=== PATIENT | female | born 1950 | race Caucasian/White ===

== ENCOUNTER 2021-06-01 10:22 | Inpatient (IN) | payer OTHER ==
[~2021-06-01] VITALS: Ht 167.6 cm; Wt 104.1 kg
--- NOTE | 2021-06-01 10:49 | NUR ---
TO ED ROOM 29 PER W/C. PT C/O N/V, DIARRHEA, SOB, DRY HEAVES; SX STARTED LAST NOC. INTERMITTENT PAIN ACROSS SHOULDER. DENIES FEVER. COVID VACC (J&J) IN MARCH. NO MED TAKEN FOR SX TODAY. [place] FOR THE [place], ATE AT [facility] LAST NOC.
--- NOTE | 2021-06-01 10:54 | NUR ---
DR LYNNE AT BS. PT ABLE TO SPEAK IN COMPLETE SENTENCES. REPORTS CHRONIC SOB FROM A-FIB, BUT WORSE TODAY.
[2021-06-01] MEDS ORDERED: METOPROLOL (10:58)
[2021-06-01] MEDS ORDERED: PRADAXA (10:58)
[2021-06-01] MEDS ORDERED: SODIUM CHLORIDE 0.9% 1,000ML IVBOLUS ONE (11:00)
[2021-06-01] MEDS ORDERED: ONDANSETRON 2MG/ML, 2ML IVPush ONE (11:00)
[2021-06-01] MEDS ORDERED: METOPROLOL 1 MG/ML, 5ML ONE ×2 (11:20→12:15)
[2021-06-01] MEDS ORDERED: ONDANSETRON 2MG/ML, 2ML ONE (11:20)
[2021-06-01 11:23] LABS: BASOPHILS % (AUTO) 1 % (0-1); EOSINOPHILS % (AUTO) 0 % (1-7); LYMPHOCYTES % (AUTO) 11 % (22-44); MEAN CORPUSCULAR HEMOGLOBIN 33.4 pg (27.0-34.8); MEAN CORPUSCULAR HGB CONC 34.1 g/dL (32.4-35.8); MEAN PLATELET VOLUME 8.6 fL (7.4-10.4); MONOCYTES % (AUTO) 9 % (2-9); NEUTROPHILS % (AUTO) 80 % (42-75); PLATELET COUNT 224 x10^3/uL (130-400); RED BLOOD COUNT 4.02 x10^6/uL (3.82-5.3); RED CELL DISTRIBUTION WIDTH 13.3 % (9.6-15.2)
[2021-06-01] MEDS: METOPROLOL 1 MG/ML, 5ML IVPush PRN ×3 (11:26→13:19)
--- NOTE | 2021-06-01 11:30 | NUR ---
ZOFRAN AND LOPRESSOR GIVEN. IV SITE PATENT. A-FIB CONTINUING; RATE [id number]
[2021-06-01 11:31] LABS: ALANINE AMINOTRANSFERASE 41 U/L (12-78); ALBUMIN 4.2 g/dL (3.4-5.0); ANION GAP 10 mmol/L (5-15); CALCIUM 10.2 mg/dL (8.5-10.1); CHLORIDE 102 mmol/L (98-107); CREATININE 0.71 mg/dL (0.55-1.02)
--- NOTE | 2021-06-01 11:35 | NUR ---
O2 SAT 89-90% RA. O2 APPLIED 2LNC; WILL TITRATE PRN.
[2021-06-01 11:36] LABS: ALKALINE PHOSPHATASE 37 U/L (45-117); TOTAL PROTEIN 8.1 g/dL (6.4-8.2)
[2021-06-01 11:44] LABS: TROPONIN I 0.558 ng/mL (0.000-0.045)
--- NOTE | 2021-06-01 11:53 | NUR ---
PT AWARE OF NEED FOR URINE SPECIMEN. REPORTS NO URGE TO VOID, AT THIS TIME.
[2021-06-01] MEDS ORDERED: FUROSEMIDE 20 MG/2 ML ONE (12:14)
[2021-06-01] MEDS ORDERED: ASPIRIN 81 MG TABLET CHEW PO ONE (12:30)
[2021-06-01] MEDS ORDERED: FUROSEMIDE 20 MG/2 ML IV ONE (12:30)
--- NOTE | 2021-06-01 12:53 | NUR ---
AMBULATORY TO & FROM [facility] W/OUT INCIDENT; GAIT STEADY. VOIDED SPECIMEN PROVIDED.
--- NOTE | 2021-06-01 13:01 | NUR ---
LOPRESSOR 5MG SECOND DOSE GIVEN. HOSPITALIST AT BS.
[2021-06-01] MEDS ORDERED: ASPIRIN 81 MG TABLET CHEW ONE (13:11)
[2021-06-01 13:13] LABS: MICROSCOPIC AUTO
--- NOTE | 2021-06-01 13:14 | NUR ---
HR [id number]. WILL NOTIFY ERP
--- NOTE | 2021-06-01 13:22 | NUR ---
LOPRESSOR THIRD DOSE GIVEN. O2 SAT 88% 2LNC. O2 INCREASED TO 4LNC; WILL TITRATE PRN
[2021-06-01 13:50] LABS: ANION GAP 10 mmol/L (5-15); CALCIUM 10.1 mg/dL (8.5-10.1); CHLORIDE 104 mmol/L (98-107); CHOLESTEROL, TOTAL 161 mg/dL (140-239); CREATININE 0.75 mg/dL (0.55-1.02); TRIGLYCERIDES 115 mg/dL (50-200); VLDL CHOLESTEROL 23 mg/dL (0-25)
[2021-06-01 13:54] LABS: CHOL/HDL RATIO 1.5; FREE T4 (FREE THYROXINE) 0.85 ng/dL (0.76-1.46); HDL CHOL % 66 % (28-40); HDL CHOLESTEROL (DIRECT) 107 mg/dL (40-60); LDL CHOLESTEROL,CALCULATED 31 mg/dL (54-169); LDL/HDL RATIO 0.3 (0.5-3.0)
[2021-06-01 13:55] LABS: TROPONIN I 0.892 ng/mL (0.000-0.045)
[2021-06-01] MEDS ORDERED: METOPROLOL TARTRATE 25 MG TAB ONE (13:58)
[2021-06-01] MEDS: METOPROLOL TARTRATE 25 MG TAB PO SCH ×2 (14:05→20:57)
--- NOTE | 2021-06-01 14:11 | NUR ---
AMBULATORY TO & FROM [facility]; GAIT STEADY. C/O BEING WINDED AFTER WALKING. MONITORING REAPPLIED. O2 6LNC. PT AWARE OF HOLD FOR BED. SIDE RAIL UP X1, CALL LIGHT W/IN REACH. SPOUSE IN ROOM.
[2021-06-01] MEDS ORDERED: METO25TA35 PO (14:21)
[2021-06-01] MEDS ORDERED: DABI150C PO (14:21)
[2021-06-01] MEDS ORDERED: SIMV40TA20 PO (14:21)
[2021-06-01] MEDS ORDERED: CORTISONE PO (14:21)
[2021-06-01] MEDS ORDERED: LOSA50TA14 PO (14:21)
[2021-06-01] MEDS ORDERED: CEFTRIAXONE 1,000 MG in DEXTROSE 5% 50 ML IVPB ONE (14:30)
--- NOTE | 2021-06-01 14:48 | NUR ---
MIRI MOLINA, INFUSING AT 100ML/HR VIA DIAL-A-FLOW. IV SITE PATENT. MONITORING CONTINUING, RATE [id number]. O2 SAT 95% 6LNC. NO ADDITIONAL NEEDS, AT THIS TIME.
--- NOTE | 2021-06-01 14:53 | NUR ---
LATE ENTRY FROM 5: CALLED DR LOWERY. CONFIRMED KNOWLEDGE OF LATEST TROP LEVEL AND REQUESTED ANTI-EMETIC FOR PT. ANTI-EMETIC TO BE ORDERED PER DR LOWERY.
--- NOTE | 2021-06-01 14:59 | NUR ---
REPORT FROM GONZALO YOON
--- NOTE | 2021-06-01 15:00 | NUR ---
pt sleeping, resp even and unlabored. pending room on floor.
--- NOTE | 2021-06-01 15:27 | NUR ---
report to Carolyn YOON
[2021-06-01] MEDS ORDERED: PROMETHAZINE 25 MG/ML, 1ML IM PRN (15:30)
[2021-06-01 16:02] VITALS: BP 128/89
[2021-06-01] MEDS ORDERED: DILTIAZEM 5 MG/ML, 5ML IVPush PRN (18:00)
[2021-06-01] MEDS: FUROSEMIDE 40 MG/4 ML IV SCH (18:46)
[2021-06-01 19:36] VITALS: BP 128/65
[2021-06-01] MEDS ORDERED: HEPARIN 25,000 UNITS/250ML PMX 250 ML IV PRN (22:30)
[2021-06-01] MEDS ORDERED: HEPARIN 5,000 UNITS/ML, 1ML IV ONE (22:30)
[2021-06-02 01:15] VITALS: BP 131/74
[2021-06-02] MEDS: METOPROLOL TARTRATE 25 MG TAB PO SCH ×4 (01:17→19:48)
[2021-06-02 02:25] LABS: TROPONIN I 0.779 ng/mL (0.000-0.045)
[2021-06-02 06:48] VITALS: BP 107/74
[2021-06-02] MEDS: FUROSEMIDE 40 MG/4 ML IV SCH ×2 (07:57→16:54)
[2021-06-02] MEDS: HEPARIN 5,000 UNITS/ML, 1ML IV PRN ×2 (09:12→15:47)
[2021-06-02] MEDS ORDERED: DILTIAZEM 120 MG CAP.ER.12H PO SCH (09:30)
[2021-06-02 09:48] LABS: BASOPHILS % (AUTO) 1 % (0-1); EOSINOPHILS % (AUTO) 0 % (1-7); LYMPHOCYTES % (AUTO) 12 % (22-44); MEAN CORPUSCULAR HEMOGLOBIN 33.8 pg (27.0-34.8); MEAN CORPUSCULAR HGB CONC 34.3 g/dL (32.4-35.8); MEAN PLATELET VOLUME 9.3 fL (7.4-10.4); MONOCYTES % (AUTO) 7 % (2-9); NEUTROPHILS % (AUTO) 80 % (42-75); PLATELET COUNT 220 x10^3/uL (130-400); RED BLOOD COUNT 3.93 x10^6/uL (3.82-5.3); RED CELL DISTRIBUTION WIDTH 13.3 % (9.6-15.2)
[2021-06-02 09:59] LABS: ALBUMIN 3.4 g/dL (3.4-5.0); ANION GAP 12 mmol/L (5-15); CALCIUM 9.1 mg/dL (8.5-10.1); CHLORIDE 102 mmol/L (98-107)
[2021-06-02 10:04] LABS: ALANINE AMINOTRANSFERASE 31 U/L (12-78); ALKALINE PHOSPHATASE 35 U/L (45-117); BILIRUBIN,TOTAL 0.9 mg/dL (0.2-1.0); CREATININE 0.79 mg/dL (0.55-1.02); TOTAL PROTEIN 7.2 g/dL (6.4-8.2)
[2021-06-02] MEDS: CEFTRIAXONE 2 GM in DEXTROSE 5% 50 ML IVPB SCH (12:22)
[2021-06-02 12:39] VITALS: BP 131/84
[2021-06-02] MEDS ORDERED: POTASSIUM CHLORIDE 20 MEQ TAB.ER.PRT PO ONE (13:30)
[2021-06-02 15:10] VITALS: BP 131/84
[2021-06-02 19:02] VITALS: BP 132/81
[2021-06-02] MEDS: ATORVASTATIN 40 MG TABLET PO SCH (19:48)
[2021-06-03 01:23] VITALS: BP 118/77
[2021-06-03] MEDS: METOPROLOL TARTRATE 25 MG TAB PO SCH ×3 (02:09→14:00)
[2021-06-03] MEDS: ASPIRIN 81 MG TABLET EC PO SCH (05:19)
[2021-06-03 05:47] LABS: BASOPHILS % (AUTO) 1 % (0-1); EOSINOPHILS % (AUTO) 2 % (1-7); LYMPHOCYTES % (AUTO) 31 % (22-44); MEAN CORPUSCULAR HGB CONC 33.6 g/dL (32.4-35.8); MEAN PLATELET VOLUME 8.9 fL (7.4-10.4); MONOCYTES % (AUTO) 12 % (2-9); NEUTROPHILS % (AUTO) 54 % (42-75); PLATELET COUNT 186 x10^3/uL (130-400); RED BLOOD COUNT 3.69 x10^6/uL (3.82-5.3); RED CELL DISTRIBUTION WIDTH 12.9 % (9.6-15.2)
[2021-06-03 06:02] LABS: ALBUMIN 3.1 g/dL (3.4-5.0); ANION GAP 6 mmol/L (5-15); CALCIUM 8.8 mg/dL (8.5-10.1); CHLORIDE 99 mmol/L (98-107)
[2021-06-03 06:07] LABS: ALANINE AMINOTRANSFERASE 25 U/L (12-78); ALKALINE PHOSPHATASE 31 U/L (45-117); BILIRUBIN,TOTAL 0.9 mg/dL (0.2-1.0); CREATININE 0.74 mg/dL (0.55-1.02); TOTAL PROTEIN 7.2 g/dL (6.4-8.2)
[2021-06-03 08:00] VITALS: BP 128/89
[2021-06-03] MEDS ORDERED: SODIUM CHLORIDE 0.9% 1,000 ML IV SCH ×2 (08:00→11:00)
[2021-06-03] MEDS: FUROSEMIDE 40 MG/4 ML IV SCH (08:22)
[2021-06-03] MEDS: POTASSIUM CHLORIDE 20 MEQ TAB.ER.PRT PO SCH ×2 (08:22→18:38)
[2021-06-03] MEDS: CEFTRIAXONE 2 GM in DEXTROSE 5% 50 ML IVPB SCH (12:14)
[2021-06-03] MEDS ORDERED: BIVALIRUDIN 250 MG ONE (15:22)
[2021-06-03] MEDS ORDERED: MIDAZOLAM 1 MG/ML, 5ML ONE (15:22)
[2021-06-03] MEDS ORDERED: LIDOCAINE-MPF 1%, 5ML ONE (15:22)
[2021-06-03] MEDS ORDERED: VERAPAMIL 2.5 MG/ML, 2ML ONE ×2 (15:22→15:46)
[2021-06-03] MEDS ORDERED: HEPARIN 1,000 UNITS/ML, 10ML ONE (15:22)
[2021-06-03] MEDS ORDERED: FENTANYL PF 100 MCG/2ML ONE (15:22)
[2021-06-03] MEDS ORDERED: TICAGRELOR 90 MG TABLET ONE (15:22)
[2021-06-03] MEDS: DILTIAZEM 125 MG in SODIUM CHLORIDE 0.9% 100 ML IV SCH (16:00)
[2021-06-03] MEDS: SODIUM CHLORIDE 0.9% 1,000 ML IV SCH (16:30)
[2021-06-03] MEDS ORDERED: POTASSIUM CHLORIDE 20 MEQ TAB.ER.PRT PO ONE (17:30)
[2021-06-03] MEDS ORDERED: METOPROLOL SUCCINATE 100 MG TAB.ER.24H PO SCH (18:00)
[2021-06-03 18:42] VITALS: BP 125/75
[2021-06-03 21:53] VITALS: BP 123/84
[2021-06-03] MEDS: ATORVASTATIN 40 MG TABLET PO SCH (21:54)
[2021-06-03] MEDS: LISINOPRIL 5 MG TABLET PO SCH (21:54)
[2021-06-04] MEDS: SODIUM CHLORIDE 0.9% 1,000 ML IV SCH ×2 (00:30→08:18)
[2021-06-04 01:25] VITALS: BP 104/70
[2021-06-04] MEDS: DILTIAZEM 125 MG in SODIUM CHLORIDE 0.9% 100 ML IV SCH (03:28)
[2021-06-04 05:21] LABS: BASOPHILS % (AUTO) 1 % (0-1); EOSINOPHILS % (AUTO) 2 % (1-7); LYMPHOCYTES % (AUTO) 26 % (22-44); MEAN CORPUSCULAR HEMOGLOBIN 33.8 pg (27.0-34.8); MEAN CORPUSCULAR HGB CONC 34.5 g/dL (32.4-35.8); MEAN PLATELET VOLUME 8.7 fL (7.4-10.4); MONOCYTES % (AUTO) 12 % (2-9); NEUTROPHILS % (AUTO) 60 % (42-75); PLATELET COUNT 175 x10^3/uL (130-400); RED BLOOD COUNT 3.27 x10^6/uL (3.82-5.3); RED CELL DISTRIBUTION WIDTH 12.9 % (9.6-15.2)
[2021-06-04] MEDS: ASPIRIN 81 MG TABLET EC PO SCH (05:23)
[2021-06-04 05:45] LABS: ALANINE AMINOTRANSFERASE 22 U/L (12-78); CALCIUM 8.4 mg/dL (8.5-10.1); CHLORIDE 100 mmol/L (98-107)
[2021-06-04 05:48] LABS: ALKALINE PHOSPHATASE 31 U/L (45-117); ANION GAP 8 mmol/L (5-15); BILIRUBIN,TOTAL 0.7 mg/dL (0.2-1.0); TOTAL PROTEIN 6.8 g/dL (6.4-8.2)
[2021-06-04 06:48] VITALS: BP 103/61
[2021-06-04] MEDS ORDERED: FUROSEMIDE 40 MG/4 ML IV SCH (07:30)
[2021-06-04] MEDS: POTASSIUM CHLORIDE 20 MEQ TAB.ER.PRT PO SCH (08:23)
[2021-06-04] MEDS: LISINOPRIL 5 MG TABLET PO SCH ×2 (08:23→08:26)
[2021-06-04] MEDS ORDERED: METO-95 PO (10:52)
[2021-06-04] MEDS ORDERED: ASPI81TA45 PO (10:52)
[2021-06-04] MEDS ORDERED: CEFD300C37 PO (10:53)
[2021-06-04 12:11] VITALS: BP 105/68
[2021-06-04] MEDS ORDERED: DILTIAZEM 125 MG in SODIUM CHLORIDE 0.9% 100 ML IV SCH (16:00)
[2021-06-04] MEDS ORDERED: DABIGATRAN 150 MG CAPSULE PO SCH (21:00)
[2021-06-05] MEDS ORDERED: LOSARTAN 25MG TABLET PO SCH (09:00)
== END 2021-06-04 12:00 | disposition home or self-care (01) | DRG 280 ==
LOC: ED 12:36 → EDIP 12:54 → 5SO 15:44
PROVIDERS: ADMIT Internal Medicine; ATTEND Hospitalist
PROC: 4A023N7 Measurement of Cardiac Sampling and Pressure, Left Heart, Percutaneous Approach (ICD-10-PCS; principal; 2021-06-03)
PROC: B2111ZZ Fluoroscopy of Multiple Coronary Arteries using Low Osmolar Contrast (ICD-10-PCS; 2021-06-03)
PROC: B2151ZZ Fluoroscopy of Left Heart using Low Osmolar Contrast (ICD-10-PCS; 2021-06-03)
DX: I48.20 Chronic atrial fibrillation, unspecified (principal); I21.A1 Myocardial infarction type 2; I50.43 Acute on chronic combined systolic (congestive) and diastolic (congestive) heart failure; N39.0 Urinary tract infection, site not specified; D68.69 Other thrombophilia; R65.10 Systemic inflammatory response syndrome (SIRS) of non-infectious origin without acute organ dysfunction; I11.0 Hypertensive heart disease with heart failure; I42.9 Cardiomyopathy, unspecified; I25.10 Atherosclerotic heart disease of native coronary artery without angina pectoris; E66.9 Obesity, unspecified; Z68.37 Body mass index [BMI] 37.0-37.9, adult; E78.5 Hyperlipidemia, unspecified; E87.6 Hypokalemia; Z79.01 Long term (current) use of anticoagulants; Z86.73 Personal history of transient ischemic attack (TIA), and cerebral infarction without residual deficits; Z87.891 Personal history of nicotine dependence; Z96.653 Presence of artificial knee joint, bilateral; G89.29 Other chronic pain; M54.9 Dorsalgia, unspecified; R73.03 Prediabetes; B96.20 Unspecified Escherichia coli [E. coli] as the cause of diseases classified elsewhere
CPT/HCPCS: 36415; 71045; 76700; 80048; 80053; 80061; 81001; 83036; 83690; 83880; 84145; 84439; 84443; 84484; 85014; 85018; 85025; 85520; 87077; 87086; 87186; 93005; 93306; 93458; 96361; 96374; 99156; C1769; C1894; G0378; J0583; J0696; J1644; J1940; J2250; J2405; J3010; J7030; Q9967